=== PATIENT | female | born 1985 | race Caucasian/White ===

== ENCOUNTER 2024-05-05 20:13 | Emergency (ER) | payer BC, OTHER ==
[2024-05-05 20:18] VITALS: BP 138/92; PULSE 103; RESP 18; TEMP 99.1; BMI 27.4
[2024-05-05] MEDS ORDERED: AMOX TR/POT CLAV 875MG/125MG TABLETS (FP) ONE (20:36)
[2024-05-05] MEDS: AMOX TR/POT CLAV 875MG/125MG TABLETS (FP) PO ONE (20:38)
[2024-05-05] MEDS: LINEZOLID 600 MG TABLET (RESTRICTED TO ID) PO ONE (21:05)
== END 2024-05-05 21:07 | disposition home or self-care (01) ==
LOC: JERFT 20:13
DX: H00.034 Abscess of left upper eyelid (principal)
CPT/HCPCS: 99283-25